=== PATIENT | female | born 1960 | race African-American/Black ===

== ENCOUNTER 2021-05-05 15:06 | Emergency (ER) | payer BC ==
[~2021-05-05] VITALS: Ht 160 cm; Wt 68.2 kg
[2021-05-05] MEDS ORDERED: ALBUTEROL SULF 0.083% NEB SOLN 3 ML NEB NEB STA (15:50)
[2021-05-05] MEDS ORDERED: DEXAMETHASONE SOD PHOS 10 MG/1 ML VIAL IM NR (16:00)
[2021-05-05] MEDS ORDERED: ALBUTEROL SULF 0.083% NEB SOLN 3 ML NEB ONE (16:23)
[2021-05-05] MEDS ORDERED: PREMARIN0.3 MG PO (16:23)
[2021-05-05] MEDS ORDERED: LASIX20 MG PO (16:23)
[2021-05-05] MEDS ORDERED: PROAIR HFA INH8.5 GM (16:23)
[2021-05-05] MEDS ORDERED: LEVOTHYROXINE75 MC1 (16:23)
[2021-05-05] MEDS ORDERED: VALACYCLOVIR1000 MG (16:23)
[2021-05-05] MEDS ORDERED: FLOVENT HFA17 GM (16:23)
[2021-05-05] MEDS ORDERED: LISINOPRIL10 MG PO (16:23)
[2021-05-05] MEDS ORDERED: DEXAMETHASONE SOD PHOS INJ 4 MG/ML SDV ONE (16:23)
[2021-05-05] MEDS ORDERED: PREDNISONE20 MG PO (17:03)
== END 2021-05-05 17:12 | disposition home or self-care (01) ==
LOC: FSED 15:36
DX: J45.901 Unspecified asthma with (acute) exacerbation (principal); I10 Essential (primary) hypertension; E03.9 Hypothyroidism, unspecified; D86.9 Sarcoidosis, unspecified
CPT/HCPCS: 99282; J1100